=== PATIENT | female | born 1970 | race Caucasian/White ===

== ENCOUNTER 2023-04-25 20:54 | Inpatient (IN) | payer SELFPAY ==
[2023-04-25 21:15] VITALS: BMI 34.3
[2023-04-25] MEDS ORDERED: ACETAMINOPHEN 1000 MG/100 ML BAG IVPB ONE (21:45)
[2023-04-25] MEDS ORDERED: ACETAMINOPHEN INJECTION 100 ML IVPB ONE (21:58)
[2023-04-25 22:13] LABS: BASO % 0.5 % (0-2.0); HEMATOCRIT 37.6 % (32.4-45.2); HEMOGLOBIN 12.7 GM/dL (10.7-15.3); LYMPH % 41.2 % (8-40); MCHC 33.8 g/dl (32.0-36.0); MEAN CELL VOLUME 82.9 fl (80-96); MEAN PLT VOLUME 7.7 fl (7.5-11.1); MONO % 7.7 % (3.8-10.2); NEUT % 47.6 % (42.8-82.8); PLATELET COUNT 260 10^3/uL (134-434); RBC 4.53 M/mm3 (3.60-5.2); RDW 13.5 % (11.6-15.6); WHITE BLOOD COUNT 7.5 K/mm3 (4.0-10.0)
[2023-04-25 22:23] LABS: INR 1.01 (0.83-1.09); PROTHROMBIN TIME (PATIENT) 11.7 SEC (9.7-13.0)
[2023-04-25 22:26] LABS: ACTIVATED PTT 35.2 SECONDS (25.2-36.5)
[2023-04-25 22:54] LABS: POTASSIUM 3.8 mmol/L (3.5-5.1)
[2023-04-25 22:56] LABS: CALCIUM 8.4 mg/dL (8.5-10.1)
[2023-04-25 22:57] LABS: ALBUMIN 3.5 g/dl (3.4-5.0); BLOOD UREA NITROGEN 14.3 mg/dL (7-18)
[2023-04-25 23:00] LABS: CREATININE 0.6 mg/dL (0.55-1.3)
[2023-04-25 23:02] LABS: BILIRUBIN,TOTAL 0.4 mg/dL (0.2-1)
[2023-04-26 01:33] LABS: N-TERMINAL BNP 41.2 pg/ml (5-125)
[2023-04-26] MEDS ORDERED: MAG HYDROX/AL HYDROX/SIMETH 30 ML UNIT-DOSE CUP PO ONE (01:34)
[2023-04-26] MEDS ORDERED: FAMOTIDINE 20 MG/50 ML IVPB 20 MG/50 ML MG IVPB ONE ×2 (01:35→01:59)
[2023-04-26] MEDS ORDERED: ASPIRIN 81 MG CHEWABLE TABLETS PO ONE (01:38)
[2023-04-26] MEDS ORDERED: ASPIRIN 81 MG CHEWABLE TABLETS ONE (01:59)
[2023-04-26] MEDS ORDERED: MAG HYDROX/AL HYDROX/SIMETH 30 ML UNIT-DOSE CUP ONE (01:59)
[2023-04-26] MEDS ORDERED: MAG HYDROX/AL HYDROX/SIMETH -MYLANTA- ORAL SUSPENSION PO ONE (02:06)
[2023-04-26] MEDS ORDERED: FAMOTIDINE 20 MG TABLET PO ONE (02:07)
[2023-04-26 02:16] VITALS: TEMP 97.4
[2023-04-26] MEDS ORDERED: ACETAMINOPHEN 325 MG TABLET (FP) PO PRN (02:22)
[2023-04-26 06:35] LABS: HEMATOCRIT 37.6 % (32.4-45.2); HEMOGLOBIN 12.6 GM/dL (10.7-15.3); MCH 28.3 pg (25.7-33.7); MCHC 33.6 g/dl (32.0-36.0); MEAN PLT VOLUME 8.2 fl (7.5-11.1); PLATELET COUNT 250 10^3/uL (134-434); RBC 4.47 M/mm3 (3.60-5.2); RDW 13.3 % (11.6-15.6); WHITE BLOOD COUNT 6.2 K/mm3 (4.0-10.0)
[2023-04-26 06:56] LABS: ALBUMIN 3.5 g/dl (3.4-5.0)
[2023-04-26 06:59] LABS: BILIRUBIN,DIRECT 0.1 mg/dL (0.0-0.2)
[2023-04-26 07:01] LABS: BILIRUBIN,TOTAL 0.4 mg/dL (0.2-1); TOT PROT 6.8 g/dl (6.4-8.2)
[2023-04-26 07:19] LABS: POTASSIUM 3.8 mmol/L (3.5-5.1)
[2023-04-26 07:24] LABS: BLOOD UREA NITROGEN 13.1 mg/dL (7-18); CALCIUM 8.4 mg/dL (8.5-10.1)
[2023-04-26 07:25] LABS: MAGNESIUM 2.4 mg/dL (1.8-2.4)
[2023-04-26 07:27] LABS: CREATININE 0.6 mg/dL (0.55-1.3); PHOSPHOROUS 3.9 mg/dL (2.5-4.9)
[2023-04-26] MEDS ORDERED: ASPIRIN 81 MG CHEWABLE TABLETS PO SCH (10:00)
[2023-04-26] MEDS ORDERED: ENOXAPARIN NA (PORCINE) 40 MG/0.4 ML DISP.SYRIN SQ SCH (10:00)
[2023-04-26 17:04] VITALS: BP 141/69; PULSE 72; RESP 16
== END 2023-04-26 16:57 | disposition home or self-care (01) | DRG 203 ==
LOC: JER 20:54 → JERBED 23:09 → OBSVTOIN 04-26 02:14
PROVIDERS: ADMIT Internal Medicine; ATTEND Internal Medicine
DX: R07.89 Other chest pain (principal); K21.9 Gastro-esophageal reflux disease without esophagitis; M19.90 Unspecified osteoarthritis, unspecified site; M25.561 Pain in right knee; M25.562 Pain in left knee; M79.602 Pain in left arm
CPT/HCPCS: 36415; 71045-TC-FY; 80048; 80053; 80061; 80076; 83036; 83735; 83880; 84100; 84484; 84703; 85025; 85027; 85379; 85610; 85730; 93005; 93010; 93306-TC; 99285-25; G0378